=== PATIENT | male | born 1950 | race Caucasian/White ===

== ENCOUNTER → 2016-12-01 | Outpatient (CLI) | payer MEDICARE, OTHER ==
[2016-12-01 09:53] LABS: RED BLOOD COUNT 5.13 M/UL (4.20-5.50); WHITE BLOOD COUNT 2.9 K/UL (4.5-11.0)
== END ==
LOC: LAB 09:15
PROVIDERS: Internal Medicine Hematology & Oncology
DX: C91.10 Chronic lymphocytic leukemia of B-cell type not having achieved remission (principal); F41.8 Other specified anxiety disorders
CPT/HCPCS: 36415; 85025

== ENCOUNTER → 2020-10-04 | Outpatient (CLI) | payer MEDICARE, OTHER ==
[~2020-10-04] MED LIST: CETIRIZINE HCL10 MG PO; CRESTOR 10 MG T10 MG PO; ECOTRIN81 MG PO; FLUOROURACIL40 GM TOP; HUMULIN N100 UNIT/1 SQ; HUMULIN R100 UNIT/1 SC; IMBRUVICA280 MG PO; LOPRESSOR 25 MG25 MG PO; NITROGLYCERIN6.5 MG PO; NORCO 5-325 TA1 EACH PO; OMNICEF 300 MG300 MG PO; PLAVIX 75 MG TA75 MG PO; SYNTHROID100 MCG PO; TOBRAMYCIN-DEX2.5 ML OD; VALIUM 10 MG TA10 MG PO; ZANTAC150 MG PO; ZYLOPRIM 300 M300 MG PO
[2020-10-04 15:09] LABS: HEMOGLOBIN 17.1 gm/dl (14.0-17.5); RED BLOOD COUNT 5.85 M/UL (4.20-5.50); WHITE BLOOD COUNT 10.8 K/UL (4.5-11.0)
[2020-10-05 12:14] LABS: CREATININE, URINE 93.4 mg/dL (Not Estab.)
[2020-10-06 17:12] LABS: CHOLESTEROL, TOTAL 100 mg/dL (100-199); HDL SIZE 8.8 nm (>=9.2); HDL-C 41 mg/dL (>39); HDL-P (TOTAL) 29.1 umol/L (>=30.5); LARGE HDL-P 1.8 umol/L (>=4.8); LARGE VLDL-P 1.1 nmol/L (<=2.7); LDL-C 44 mg/dL (0-99); LDL-P 500 nmol/L (<1000); LP-IR SCORE 52 (<=45); SMALL LDL-P 331 nmol/L (<=527); TRIGLYCERIDES 72 mg/dL (0-149); VLDL SIZE 51.9 nm (<=46.6)
== END ==
LOC: LAB 13:55
PROVIDERS: Emergency Medicine
DX: E11.649 Type 2 diabetes mellitus with hypoglycemia without coma (principal); E78.2 Mixed hyperlipidemia; E03.8 Other specified hypothyroidism; I12.9 Hypertensive chronic kidney disease with stage 1 through stage 4 chronic kidney disease, or unspecified chronic kidney disease; E11.22 Type 2 diabetes mellitus with diabetic chronic kidney disease; N18.30 Chronic kidney disease, stage 3 unspecified; Z88.8 Allergy status to other drugs, medicaments and biological substances
CPT/HCPCS: 36415; 80053; 82043; 82570; 83036; 84443; 84550; 85025

== ENCOUNTER → 2022-04-25 | Outpatient (CLI) | payer MEDICARE, OTHER ==
[2022-04-25 11:15] LABS: HEMOGLOBIN 15.1 gm/dl (14.0-17.5); RED BLOOD COUNT 4.97 M/UL (4.20-5.50); WHITE BLOOD COUNT 13.8 K/UL (4.5-11.0)
[2022-04-25 11:45] LABS: BUN/CREATININE RATIO 8 (0-10)
[2022-04-27 10:15] LABS: CHOLESTEROL, TOTAL 111 mg/dL (100-199); HDL SIZE 9.1 nm (>=9.2); HDL-C 42 mg/dL (>39); HDL-P (TOTAL) 29.1 umol/L (>=30.5); LARGE HDL-P 2.4 umol/L (>=4.8); LARGE VLDL-P 1.4 nmol/L (<=2.7); LDL SIZE 20.6 nm (>20.5); LDL SIZE 20.6 nm (>=20.8); LDL-C 56 mg/dL (0-99); LDL-P 656 nmol/L (<1000); LP-IR SCORE 47 (<=45); SMALL LDL-P 332 nmol/L (<=527); TRIGLYCERIDES 58 mg/dL (0-149); VLDL SIZE 51.3 nm (<=46.6)
== END ==
LOC: LAB 10:41
PROVIDERS: Emergency Medicine
DX: E11.649 Type 2 diabetes mellitus with hypoglycemia without coma (principal); E78.2 Mixed hyperlipidemia; I25.10 Atherosclerotic heart disease of native coronary artery without angina pectoris; E11.22 Type 2 diabetes mellitus with diabetic chronic kidney disease; I12.9 Hypertensive chronic kidney disease with stage 1 through stage 4 chronic kidney disease, or unspecified chronic kidney disease; N18.30 Chronic kidney disease, stage 3 unspecified
CPT/HCPCS: 36415; 80053; 80061; 83036; 83704; 84550; 85027